=== PATIENT | female | born 1955 | race Caucasian/White ===

== ENCOUNTER → 2017-04-03 | Outpatient (CLI) | payer OTHER ==
[~2017-04-03] MED LIST: ACETAMINOPHEN PO; ACETAZOLAMIDE250 MG PO; ADVAIR 250-501 EAC1 INH; ADVAIR 250-501 EACH IH; AMLODIPINE BESYL5 MG PO; APRESOLINE PO; ASPIRIN81 MG PO; ATORVASTATIN CA80 MG PO; ATRAC-TAIN142 GM EXT; BACTRIM DS TABL1 TA1 PO; BIAXIN PO; BROMFENAC; BUPROPION XL300 M1 PO; CEFAZOLIN IV; CHEWABLE ASPIRI81 MG PO; CLOPIDOGREL75 MG PO; COMBIVENT INH14.7 GM INH; COMBIVENT MININEB INH; COZAAR PO; CYMBALTA30 M1 PO; CYMBALTA30 MG PO; DEMADEX PO; DIOVAN HCT 160-1 TAB PO; FENOFIBRATE160 MG PO; HUMALOG100 U/M2 SUBQ; HUMULIN R100 U/ML SUBQ; JANUVIA50 MG PO; KEFLEX PO; LANTUS100 U/ML SUBQ; LEVAQUIN PO; LIPITOR PO; LORAZEPAM1 MG PO; LOSARTAN POTASS50 MG PO; LYRICA PO; NEURONTIN600 MG PO; NEXIUM PO; NORVASC PO; NOVOLIN 70/30 V10 M1 SUBQ; NOVOLIN 70/30 V10 ML SUBQ; NOVOLOG MIX 70/33 ML SUBQ; NOVOLOG7030 SUBQ; PRED MILD5 ML OP; PREDNISONE PO; PRILOSEC PO; REGULAR INSULIN; REGULAR INSULIN SUBQ; SANTYL OINTMENT TOP; SIMVASTATIN40 MG PO; STOOL SOFTENER100 M1 PO; SYMBICORT INH; TEMOVATE EMOLLI30 GM TOP; TOPIRAMATE100 MG PO; TOPROL XL PO; TOPROL XL200 MG PO; ULORIC40 MG PO; VITAMIN D-32000 UNIT PO; VYTORIN 10/40 T1 TAB PO; ZETIA PO; ZYLOPRIM100 MG PO; [UNRECOGNIZED DRUG - OTHER] TOP
--- NOTE | ~2017-04-03 | CT4 ---
[facility] A Service of [facility] RADIOLOGY TEXT RESULTS PATIENT: HILL JARQUIN LOCATION: [facility] : 57 UNIT #: [id number] AGE: [address]: Osiris Carreon APRN SEX: F ORDER DR: [id number] [facility] [address] [place], [place] [address] [id number] O MR#: [id number] Acc #: [id number] NAME: HILL JARQUIN : 1955 SEX: F STUDY DATE/TIME: 04/03/2017 16:04 [facility]: STUDY DESCRIPTION: CT Abd and Pelv Wo Cont Attending Physician: Osiris Carreon A.P.R.N. Referring Physician: Osiris Carreon A.P.R.N. Ordering Physician: Osiris Carreon A.P.R.N. Primary Care Physician: Osiris Carreon A.P.R.N. MEDICAL IMAGING REPORT This report is preliminary unless electronic signature is present EXAM CT abdomen and pelvis 04/03/17 INDICATIONS Suprapubic pain with nausea for a few months. Constipation and post menopausal bleeding as well. TECHNIQUE Axial images were obtained through the abdomen and pelvis without contrast. Multiplanar reformats were obtained. No comparison abdomen or pelvis CT. This CT exam was performed with one or more of the following radiation dose reduction techniques: automatic exposure control, adjustment of mA and/or kV according to patient size, and iterative reconstruction. FINDINGS Abdomen: There is chronic elevation of the right hemidiaphragm with chronic right base atelectasis. This is also seen on the chest CT from 2009. Gallbladder contains stones but is otherwise unremarkable. There is diffuse atherosclerotic disease, there is no aortic aneurysm. No renal or ureteral stones are seen and there is no hydronephrosis. There is bilateral renal cortical thinning. Unenhanced solid organs are otherwise normal. Unopacified GI tract is normal. Pelvis: Urinary bladder is normal. Calcified fibroids noted in the uterus. The appendix is normal. The remainder of the unopacified GI tract is normal as well. IMPRESSION [facility] A Service of [facility] RADIOLOGY TEXT RESULTS PATIENT: HILL JARQUIN LOCATION: [facility] : 57 UNIT #: [id number] AGE: [address]: Osiris Carreon APRN SEX: F ORDER DR: 1. No acute findings the abdomen or pelvis. 2. Cholelithiasis. 3. Normal unopacified GI tract, including the appendix. 4. Atherosclerotic disease. 5. Uterine fibroids. Dictated by... David Vogel Jr., M.D. THIS IS AN ELECTRONICALLY VERIFIED REPORT David Vogel Jr., M.D. at 04/06/2017 5:54 AM LUL/ion TD: 04/03/2017 23:56 JOB #: [id number] MEDICAL IMAGING REPORT Page 1 of 1 COPY
== END | disposition home or self-care (01) ==
LOC: CCAT 15:06
DX: N95.0 Postmenopausal bleeding (principal); R11.0 Nausea; K80.20 Calculus of gallbladder without cholecystitis without obstruction; D25.9 Leiomyoma of uterus, unspecified; I70.90 Unspecified atherosclerosis
CPT/HCPCS: 74176